=== PATIENT | male | born 1970 | race Caucasian/White ===

== ENCOUNTER 2019-04-14 18:52 | Emergency (ER) | payer OTHER ==
[~2019-04-14] VITALS: Ht 188 cm; Wt 99.8 kg
[2019-04-14] MEDS ORDERED: SEROQUEL XR400 MG (19:53)
== END 2019-04-14 23:14 | disposition home or self-care (01) ==
LOC: ER 18:52
DX: R10.2 Pelvic and perineal pain (principal); M54.32 Sciatica, left side

== ENCOUNTER 2024-06-07 19:29 | Emergency (ER) | payer OTHER ==
[~2024-06-07] VITALS: Ht 188 cm; Wt 104.3 kg
[~2024-06-07 19:29] MED LIST: SEROQUEL XR400 MG
[2024-06-07] MEDS ORDERED: LUNESTA3 MG (21:34)
[2024-06-08] MEDS ORDERED: 0.9 % SODIUM CHLORIDE 1,000 ML IV STA (05:20)
[2024-06-08] MEDS ORDERED: DEXAMETHASONE SODIUM PHOSPHATE 4 MG/ML VIAL IV STA (05:21)
[2024-06-08] MEDS ORDERED: DEXAMETHASONE SODIUM PHOSPHATE 4 MG/ML VIAL ONE (05:58)
[2024-06-08 07:16] LABS: HEMATOCRIT 46.2 % (39.0-48.0); MEAN CELL VOLUME 82.7 fL (80.0-100.00); MEAN CORPUSCULAR HEMOGLOBIN 28.7 pg (27.00-32.0); MEAN CORPUSCULAR HGB CONC 34.8 g/dl (32.0-36.0); RED BLOOD COUNT 5.58 M/uL (4.00-6.00)
[2024-06-08 07:17] LABS: PLATELET COUNT 127 K/uL (150-450)
[2024-06-08 07:21] LABS: ERYTHROCYTE SEDIMENTATION RATE 23 mm/hr
[2024-06-08 07:26] LABS: INR 1.05; PARTIAL THROMBOPLASTIN TIME 31.4 SECONDS (22.0-34.0); PROTHROMBIN TIME 11.4 SECONDS (9.0-11.5)
[2024-06-08 07:53] VITALS: BP 127/86
[2024-06-08 09:18] LABS: ALBUMIN 2.9 gm/dL (3.4-5.0); BILIRUBIN TOTAL 0.45 mg/dL (0.3-1.2); CALCIUM 8.5 mg/dL (8.5-10.1); CREATININE SERUM 0.67 mg/dL (0.70-1.30); GFR 123.61; GLOBULINA 3.9 G/DL (2.4-3.5); POTASSIUM 3.73 mEq/L (3.5-5.1); TOTAL PROTEIN 6.8 gm/dL (6.4-8.2)
[2024-06-08] MEDS ORDERED: OSEL75CA PO (09:36)
[2024-06-08] MEDS ORDERED: PEPCID AC20 MG PO (09:36)
[2024-06-08 18:48] VITALS: O2SAT 95
[2024-06-08] MEDS ORDERED: IPRATROPIUM/ALBUTEROL SULFATE 3 ML AMPUL.NEB IH SCH (19:45)
[2024-06-08] MEDS ORDERED: ORPHENADRINE CITRATE 30 MG/ML AMPUL IV ONE (20:00)
[2024-06-08] MEDS ORDERED: OSELTAMIVIR PHOSPHATE 75 MG CAPSULE PO ONE ×2 (20:00→20:06)
[2024-06-08] MEDS ORDERED: ORPHENADRINE CITRATE 30 MG/ML AMPUL ONE (20:06)
[2024-06-08] MEDS ORDERED: IPRATROPIUM/ALBUTEROL SULFATE 3 ML AMPUL.NEB IH ONE (20:59)
== END 2024-06-08 21:44 | disposition home or self-care (01) ==
LOC: ER 19:31
DX: J10.1 Influenza due to other identified influenza virus with other respiratory manifestations (principal); Z20.822 Contact with and (suspected) exposure to COVID-19; G44.89 Other headache syndrome
CPT/HCPCS: 70544

== ENCOUNTER → 2025-02-14 | Emergency (ER) | payer OTHER ==
[~2025-02-14] MED LIST changes: +LUNESTA3 MG; +OSEL75CA PO; +PEPCID AC20 MG PO
== END | disposition left against medical advice (07) ==
LOC: ER 00:35
DX: Z53.21 Procedure and treatment not carried out due to patient leaving prior to being seen by health care provider (principal)